=== PATIENT | female | born 1940 | race Caucasian/White ===

== ENCOUNTER → 2016-09-29 | Outpatient (CLI) | payer MEDICARE, OTHER ==
--- NOTE | 2016-09-29 17:24 | DI ---
Indication: ITS.REASON: C49.21; R22.41 Localized swelling, mass and lump, right lower dougherty PROCEDURE: US VENOUS DUPLEX, LOWER EXT RT: Encounter: Initial Comparison: None Technique: Color Doppler duplex and grayscale sonographic imaging of the right lower extremity was performed. Findings: There is no evidence for acute deep venous thrombosis in the right thigh. Specifically, serial graded compression was performed from the inguinal ligament to the popliteal bifurcation, on the right thigh, demonstrating appropriate compressibility of the deep venous system. In addition, color and pulsed Doppler demonstrate appropriate spontaneous flow, variation with respiration, and augmentation with calf compression. At the ankle, normal flow is identified in the posterior tibial veins; these vessels are also normal in caliber. No sonographically apparent mass in the medial calf area of palpable concern. Impression: No evidence of acute DVT in the right lower limb. .
== END ==
LOC: IMA 16:04
PROVIDERS: ATTEND Nurse Practitioner
DX: C49.21 Malignant neoplasm of connective and soft tissue of right lower limb, including hip (principal); R22.41 Localized swelling, mass and lump, right lower limb

== ENCOUNTER → 2016-10-27 | Outpatient (CLI) | payer MEDICARE, OTHER ==
[~2016-10-27] MED LIST: GADOBUTROL 10mMol/10ml INJECTION IV ONE; SALINE FLUSH 10ml SYRINGE ONE
--- NOTE | 2016-10-27 15:27 | DI ---
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 Findings: There is been interval decreased size of the previously noted multiseptated well encapsulated predominantly fat signal intensity intermuscular mass within the posterior right thigh, now measuring 5.4 x 5.9 x 17.6 cm (AP by transverse by craniocaudal). Postsurgical scar is seen posteriorly with edema seen surrounding the scar and the mass. Although some of the septations appear somewhat intrinsically T1 hyperintense, there does appear to be some postcontrast increased signal intensity both of the septations and the surrounding soft tissues. No focal/nodular/masslike postcontrast enhancement is identified. The underlying right femur appears normal in signal intensity. The muscular structures appear intact and normal in signal intensity. No lymphadenopathy appreciated within the right groin. Impression: 1. Interval decreased size of the predominantly fat attenuation multiseptated well encapsulated intermuscular mass within the posterior right thigh with postsurgical scar and edema noted. There is suggestion of mild postcontrast enhancement of the septations and surrounding soft tissues, which could be postsurgical in nature, without focal/nodular/masslike enhancement. 2. The adjacent right femur remains normal in signal intensity without evidence of marrow replacing process. 3. No lymphadenopathy appreciated within the right groin. .
== END ==
LOC: IMA 12:30
PROVIDERS: ATTEND Internal Medicine Hematology & Oncology
DX: C49.21 Malignant neoplasm of connective and soft tissue of right lower limb, including hip (principal); R60.0 Localized edema; Z98.890 Other specified postprocedural states
CPT/HCPCS: 73720; A9585